=== PATIENT | male | born 2005 | race Hispanic/Latino ===

== ENCOUNTER 2025-01-23 08:26 | Emergency (ER) | payer OTHER ==
[~2025-01-23] VITALS: Ht 170.2 cm; Wt 73.6 kg
[2025-01-23 09:21] VITALS: BP 112/54; TEMP 97.5; O2SAT 96
== END 2025-01-23 09:23 | disposition home or self-care (01) ==
LOC: EDBD 08:26 → M ED 08:26
DX: S46.212A Strain of muscle, fascia and tendon of other parts of biceps, left arm, initial encounter (principal); X50.0XXA Overexertion from strenuous movement or load, initial encounter; Y92.9 Unspecified place or not applicable; Y93.9 Activity, unspecified; Y99.1 Military activity